=== PATIENT | female | born 1985 | race Caucasian/White ===

== ENCOUNTER 2019-02-04 01:10 | Inpatient (IN) | payer OTHER ==
[~2019-02-04] VITALS: Ht 157.5 cm; Wt 0.1 kg
[~2019-02-04 01:10] MED LIST: ALBU90OI6 INH; ONDA8 PO; Omeprazole20 M1; RANI150 PO; Verotin-Gr Cap1 EACH PO
[2019-02-04 03:16] LABS: BASOPHILS ABSOLUTE AUTO 0.02 K/mm3 (0.00-0.23); BASOPHILS PERCENT AUTO 0 % (0-2); EOSINOPHILS PERCENT AUTO 1 % (0-6); Hematocrit 37.9 % (33.0-51.0); Hemoglobin 12.7 g/dL (11.5-16.0); IMMATURE GRAN ABSOLUTE AUTO 0.04 K/mm3 (0.00-0.10); IMMATURE GRAN PERCENT AUTO 0 % (0-1); LYMPHOCYTES ABSOLUTE AUTO 1.99 K/mm3 (0.84-5.20); LYMPHOCYTES PERCENT AUTO 19 % (21-46); MONOCYTES ABSOLUTE AUTO 0.85 K/mm3 (0.16-1.47); MONOCYTES PERCENT AUTO 8 % (4-13); Mean Corpuscular HGB 28.7 pg (26.0-34.0); Mean Corpuscular HGB Conc 33.5 g/dL (31.5-36.5); Mean Corpuscular Volume 86 fL (80-100); Mean Platelet Volume 11.1 fL (9.1-12.4); NEUTROPHILS ABSOLUTE AUTO 7.65 K/mm3 (1.96-9.15); NEUTROPHILS PERCENT AUTO 72 % (41-73); Platelet Count 169 K/mm3 (150-400); RDW Coefficient Variation 13.6 % (11.7-14.2); RDW Standard Deviation 42.8 fL (35.1-46.3); Red Blood Cell Count 4.42 M/mm3 (3.80-5.20); White Blood Cell Count 10.65 K/mm3 (4.00-11.30)
[2019-02-04] MEDS ORDERED: Evening Primro1 EACH PO (03:35)
[2019-02-04] MEDS ORDERED: SLOW FE142 MG PO (03:35)
--- NOTE | 2019-02-04 08:00 | NUR ---
[facility] PT HERE IN [facility], NOT MUCH CHANGE IN VE SINCE ADMIT AT 0300. PLAN TO [facility], EPIDURAL AND THEN START PIT IF NEEDED. PT AWARE OF LABOR PAIN NOW AND WANTS AN EPIDURAL. HER WILBERT AT BEDSIDE VERY LOVING AND SUPPORTIVE. ALL CONSENTS SIGNED AND C/S PACKET READY. LAST C/S WAS 26 MONTHS AGO.
--- NOTE | 2019-02-04 22:52 | NUR ---
BLEEDING SCANT. PT UNABLE TO VOID WHILE UP. WILL ATTEMPT AGAIN SOON
[2019-02-05 05:31] LABS: BASOPHILS ABSOLUTE AUTO 0.03 K/mm3 (0.00-0.23); BASOPHILS PERCENT AUTO 0 % (0-2); EOSINOPHILS ABSOLUTE AUTO 0.04 K/mm3 (0.00-0.68); EOSINOPHILS PERCENT AUTO 0 % (0-6); Hematocrit 33.1 % (33.0-51.0); Hemoglobin 10.9 g/dL (11.5-16.0); IMMATURE GRAN PERCENT AUTO 1 % (0-1); LYMPHOCYTES ABSOLUTE AUTO 1.66 K/mm3 (0.84-5.20); LYMPHOCYTES PERCENT AUTO 10 % (21-46); MONOCYTES ABSOLUTE AUTO 1.44 K/mm3 (0.16-1.47); MONOCYTES PERCENT AUTO 9 % (4-13); Mean Corpuscular HGB 28.8 pg (26.0-34.0); Mean Corpuscular HGB Conc 32.9 g/dL (31.5-36.5); Mean Corpuscular Volume 87 fL (80-100); Mean Platelet Volume 10.7 fL (9.1-12.4); NEUTROPHILS ABSOLUTE AUTO 12.98 K/mm3 (1.96-9.15); NEUTROPHILS PERCENT AUTO 80 % (41-73); Platelet Count 112 K/mm3 (150-400); Red Blood Cell Count 3.79 M/mm3 (3.80-5.20); White Blood Cell Count 16.25 K/mm3 (4.00-11.30)
--- NOTE | 2019-02-05 19:20 | NUR ---
PATIENT C/O NUMBNESS AND TINGLING IN RIGHT HAND PATIENT STATES THAT SHE FELT THE TINGLING DURING HER , BUT FEELS THAT IT IS WORSE NOW. [employer] CLERK NOTIFIED, AND PATIENT ADVISED THAT SHE SHOULD ELEVATE ARM DUE TO POSSIBILITY THAT FLUID RETENTION MAY BE PUTTING PRESSURE ON NERVE. PATIENT COMPLIED.
--- NOTE | 2019-02-05 23:46 | NUR ---
PATIENT NOTIFIED OF JAUNDICE RISK LEVEL 76-95%. WE DISCUSSED IMPORTANCE OF FEEDING BABY EVERY 2-3 HRS TO DECREASE BILIRUBIN LEVELS.
[2019-02-06 05:32] LABS: BASOPHILS ABSOLUTE AUTO 0.03 K/mm3 (0.00-0.23); BASOPHILS PERCENT AUTO 0 % (0-2); EOSINOPHILS ABSOLUTE AUTO 0.14 K/mm3 (0.00-0.68); EOSINOPHILS PERCENT AUTO 2 % (0-6); Hematocrit 32.8 % (33.0-51.0); Hemoglobin 10.6 g/dL (11.5-16.0); IMMATURE GRAN ABSOLUTE AUTO 0.04 K/mm3 (0.00-0.10); IMMATURE GRAN PERCENT AUTO 0 % (0-1); LYMPHOCYTES ABSOLUTE AUTO 1.87 K/mm3 (0.84-5.20); LYMPHOCYTES PERCENT AUTO 20 % (21-46); MONOCYTES ABSOLUTE AUTO 0.69 K/mm3 (0.16-1.47); MONOCYTES PERCENT AUTO 7 % (4-13); Mean Corpuscular HGB Conc 32.3 g/dL (31.5-36.5); Mean Corpuscular Volume 90 fL (80-100); Mean Platelet Volume 10.7 fL (9.1-12.4); NEUTROPHILS ABSOLUTE AUTO 6.55 K/mm3 (1.96-9.15); NEUTROPHILS PERCENT AUTO 70 % (41-73); Platelet Count 118 K/mm3 (150-400); RDW Standard Deviation 46.2 fL (35.1-46.3); Red Blood Cell Count 3.65 M/mm3 (3.80-5.20); White Blood Cell Count 9.32 K/mm3 (4.00-11.30)
[2019-02-06] MEDS ORDERED: IBUP800 PO (10:57)
--- NOTE | 2019-02-06 11:48 | NUR ---
DISCHARGE INSTRUCTIONS GIVEN. ALL QUESTIONS ANSWERED.
--- NOTE | 2019-02-06 12:19 | NUR ---
PATIENT DISCHARGED HOME AT 1200.
== END 2019-02-06 12:00 | disposition home or self-care (01) | DRG 807 ==
LOC: OBS 01:10 → BC 01:11 → OBS 02:39 → BC 02:41
PROVIDERS: ADMIT Nurse Practitioner Obstetrics & Gynecology
PROC: 10E0XZZ Delivery of Products of Conception, External Approach (ICD-10-PCS; principal; 2019-02-04)
PROC: 0HQ9XZZ Repair Perineum Skin, External Approach (ICD-10-PCS; 2019-02-04)
PROC: 10907ZC Drainage of Amniotic Fluid, Therapeutic from Products of Conception, Via Natural or Artificial Opening (ICD-10-PCS; 2019-02-04)
PROC: 3E0R3BZ Introduction of Anesthetic Agent into Spinal Canal, Percutaneous Approach (ICD-10-PCS; 2019-02-04)
DX: O99.824 Streptococcus B carrier state complicating childbirth (principal); Z37.0 Single live birth; O70.0 First degree perineal laceration during delivery; Z3A.41 41 weeks gestation of pregnancy; O34.211 Maternal care for low transverse scar from previous cesarean delivery
CPT/HCPCS: 36415; 51702; 85025; J0290; J0690; J1885; J2405; J2590; J3010; J7120

== ENCOUNTER → 2025-05-30 | Outpatient (CLI) | payer OTHER ==
[~2025-05-30] MED LIST changes: +Evening Primro1 EACH PO; +IBUP800 PO; +SLOW FE142 MG PO
== END | disposition home or self-care (01) ==
LOC: LAB 14:54 → LAB SHORT 14:54
PROVIDERS: Physician Assistant
DX: Z01.419 Encounter for gynecological examination (general) (routine) without abnormal findings (principal)
CPT/HCPCS: 87624; G0123